=== PATIENT | female | born 1960 | race Caucasian/White ===

== ENCOUNTER → 2023-07-21 16:07 | Outpatient (CLI) | payer OTHER, SELFPAY ==
--- NOTE | 2023-07-21 16:11 | DI.RAD.S_ITS ---
PROCEDURE: XR LUMBAR SPINE MIN 4V INDICATIONS: BACK PAIN TECHNIQUE: 5 views of the lumbar spine were acquired, including bilateral oblique views. COMPARISON: None. FINDINGS: Bones: 5 nonrib-bearing vertebrae are present. There is normal bony alignment. No vertebral body compression fractures. No suspicious bony lesions. Convex right thoracolumbar degenerative scoliosis. Grade 1 anterior spondylolisthesis L4-5. Multilevel degenerative disc space narrowing and facet sclerosis arthropathy noted in the lower lumbar spine Soft tissues: Atherosclerotic calcification in the abdominal aorta noted without evidence of aneurysm. Oblique images: No pars defects. IMPRESSION: Degenerative disc disease, arthropathy and L4-5 grade 1 anterior spondylolisthesis. Approved by: Tomas Craft M.D. on 07/21/2023 at 16:42
== END ==
PROVIDERS: Referring Provider Physical Medicine & Rehabilitation; Visit Provider Physical Medicine & Rehabilitation
DX: M51.36 Other intervertebral disc degeneration, lumbar region (principal); M47.816 Spondylosis without myelopathy or radiculopathy, lumbar region; M43.16 Spondylolisthesis, lumbar region; M54.9 Dorsalgia, unspecified
CPT/HCPCS: 72110

== ENCOUNTER 2025-03-13 09:31 | Outpatient (CLI) | payer OTHER, SELFPAY ==
[2025-03-13] VITALS (10 sets, daily range): BP systolic 102–147; BP diastolic 60–75; PULSE 55–69; RESP 14–17; TEMP 36.6; O2SAT 96–99
[2025-03-13] MEDS: MIDAZOLAM 2 MG/2 ML VIAL IV (10:27)
[2025-03-13] MEDS: LIDOCAINE 1% 20 ML 5 ML INJ (10:31)
[2025-03-13] MEDS: BUPIVACAINE 0.5% (PF) 10 ML VIAL 5 ML INJ (10:31)
[2025-03-13] MEDS: iopamidoL 15 ML VIAL 3 ML INJ (10:31)
[2025-03-13] MEDS: MIDAZOLAM 2 MG/2 ML VIAL 1 MG IV (10:36)
--- NOTE | 2025-03-13 10:48 | P.PCN_ITS ---
Date/Time/Diagnoses Date of procedure: 03/13/25 Time of procedure: 10:48 Pre-procedure diagnosis: FACET ARTHROPATHY Post-procedure diagnosis: same Procedure Notes Procedure: 1. BILATERAL L4 AND L5 DIAGNOSTIC MB BLOCKS Indications: Lucinda is referred by GUANAKO Roman for treatment of Bilateral Axial LBP. Physician: Velasquez Bolton Total Fluoroscopy time (seconds): 9 Total sedation minutes: 14 Complications: none Procedure in detail & Post-procedure care: DESCRIPTION OF PROCEDURE Fluoroscopically guided, contrast-controlled bilateral L4 AND L5 medial branch blocks with 0.5cc of 0.5% Marcaine. Following review of allergy and review of potential side effects and complications, including, but not necessarily limited to, infection, allergic reaction, local tissue breakdown, nerve injury, paralysis, stroke and possible , the patient indicated that the patient understood and agreed to proceed. An informed consent document was signed by the patient, witnessed by a nurse, and placed in the patient's chart. After review of previous anaesthesic history and IV conscious sedation the patient was deemed safe to proceed with today's procedure with IV conscious sedation as ASA class II designation. Safety time-out was performed to confirm patient ID, procedure to be performed and site of procedure. IV sedation was accomplished with a combination of 3mg of Versed was administered by the RN after DO order, titrated to patient comfort during the course of the procedure while the patient remained responsive to all verbal commands In the prone position, following sterile prep and drape of the lumbar region, the right L4 AND L5 anatomical location of the medial branch of the dorsal ramus was identified fluoroscopically. Subsequently an anesthetic skin wheal using 1% lidocaine solution was initiated at each of the anatomical spots. Subsequently then a 22-gauge 3.5-inch spinal needle was atraumatically introduced and advanced under fluoroscopic guidance at each of the corresponding sites at the right L4 and L5 MB. After negative aspiration, 0.2cc of Isovue 200 was injected, confirming placement without vascular or intrathecal uptake. Subsequently then 0.5cc of 0.5% Marcaine solution was injected at each of the corresponding sites at the right L4 and L5 medial branch locations. The identical procedure was replicated on the left. The patient tolerated the procedure well without signs or symptoms of complications. The patient tolerated the procedure well without signs or symptoms of complications prior to transfer to the recovery area continued monitoring without incident. Post-procedure, the patient was monitored initiating provocative activities to measure the amount of relief from block of the facetogenic pain. The patient reported a VAS of 7 prior to the procedure and a post-procedure VAS of 1. It has been a pleasure to assist in the diagnostic and therapeutic care of your patient. POST OP INSTRUCTIONS The patient was provided with a Pain Log to complete over the next several hours and subsequent days prior to the patient's follow up with the ordering physician. If the patient has caramel candy maker relief to the solution applied, then they may be a candidate for medial branch rhizotomy. The patient is aware, was provided, once again, with a Pain Log and will follow up with the referring physician for review and clinical correlation
== END 2025-03-13 11:10 | disposition home or self-care (01) ==
PROVIDERS: PCP Registered Nurse; Referring Provider Physical Medicine & Rehabilitation; Visit Provider Physical Medicine & Rehabilitation
DX: M47.816 Spondylosis without myelopathy or radiculopathy, lumbar region (principal)
CPT/HCPCS: 64493; 64494; 99152; J2250

== ENCOUNTER 2025-10-09 15:00 | Outpatient (CLI) | payer OTHER, SELFPAY ==
[2025-10-09] VITALS (8 sets, daily range): BP systolic 131–165; BP diastolic 66–81; PULSE 62–78; RESP 16–21; TEMP 36.8; O2SAT 93–100
[2025-10-09] MEDS: MIDAZOLAM 2 MG/2 ML VIAL IV (16:32)
[2025-10-09] MEDS: LIDOCAINE 1% 20 ML 5 ML INJ (16:37)
[2025-10-09] MEDS: LIDOCAINE 2% INJ MDV 20ML 5 ML INJ (16:37)
--- NOTE | 2025-10-09 16:52 | PM.PROC.IR.1 ---
Date/Time/Diagnoses Date of procedure: 10/09/25 Time of procedure: 16:52 Pre-procedure diagnosis: 1. FACET ARTHROPATHY Post-procedure diagnosis: same Procedure Notes Procedure: 1. BILATERAL- L4, L5 DIAGNOSTIC MB BLOCKS with SA Anesthetic Indications: Lucinda is referred by GUANAKO Roman for treatment of Bilateral Axial LBP. Physician: Velasquez Bolton Total Fluoroscopy time (seconds): 11 Total sedation minutes: 16 Complications: none Procedure in detail & Post-procedure care: DESCRIPTION OF PROCEDURE Fluoroscopically guided, contrast-controlled bilateral L4, L5 medial branch blocks with 0.5cc of 2% Lidocaine. Following review of allergy and review of potential side effects and complications, including, but not necessarily limited to, infection, allergic reaction, local tissue breakdown, nerve injury, paralysis, stroke and possible , the patient indicated that the patient understood and agreed to proceed. An informed consent document was signed by the patient, witnessed by a nurse, and placed in the patient's chart. After review of previous anaesthesic history and IV conscious sedation the patient was deemed safe to proceed with today's procedure with IV conscious sedation as ASA class II designation. Safety time-out was performed to confirm patient ID, procedure to be performed and site of procedure. IV sedation was accomplished with a combination of 2mg of Versed was administered by the RN after DO order, titrated to patient comfort during the course of the procedure while the patient remained responsive to all verbal commands In the prone position, following sterile prep and drape of the lumbar region, the right L4, L5 anatomical location of the medial branch of the dorsal ramus was identified fluoroscopically. Subsequently an anesthetic skin wheal using 1% lidocaine solution was initiated at each of the anatomical spots. Subsequently then a 22-gauge 3.5-inch spinal needle was atraumatically introduced and advanced under fluoroscopic guidance at each of the corresponding sites at the right L4, L5 MB. After negative aspiration, 0.2cc of Isovue 200 was injected, confirming placement without vascular or intrathecal uptake. Subsequently then 0.5cc of 2% Lidocaine solution was injected at each of the corresponding sites at the right L4, L5 medial branch locations. The identical procedure was replicated on the left. The patient tolerated the procedure well without signs or symptoms of complications prior to transfer to the recovery area continued monitoring without incident. Post-procedure, the patient was monitored initiating provocative activities to measure the amount of relief from block of the facetogenic pain. The patient reported a VAS of 7 prior to the procedure and a post-procedure VAS of 1. It has been a pleasure to assist in the diagnostic and therapeutic care of your patient. POST OP INSTRUCTIONS The patient was provided with a Pain Log to complete over the next several hours and subsequent days prior to the patient's follow up with the ordering physician. If the patient has dent remover relief to the solution applied, then they may be a candidate for medial branch rhizotomy. The patient is aware, was provided, once again, with a Pain Log and will follow up with the referring physician for review and clinical correlation
== END 2025-10-09 17:19 | disposition home or self-care (01) ==
PROVIDERS: PCP Registered Nurse; Referring Provider Physical Medicine & Rehabilitation; Visit Provider Physical Medicine & Rehabilitation
DX: M47.816 Spondylosis without myelopathy or radiculopathy, lumbar region (principal)
CPT/HCPCS: 64493; 99152; J2250